=== PATIENT | male | born 1965 | race Caucasian/White ===

== ENCOUNTER 2022-08-02 07:41 | Day surgery (SDC) | payer MEDICAID ==
[2022-08-02] MEDS ORDERED: Lactated Ringers 1,000 ML IV SCH (08:00)
[2022-08-02] MEDS ORDERED: Propofol 200 MG/20 ML SDV ONE (08:02)
[2022-08-02] MEDS ORDERED: fentaNYL 100 MCG/2 ML SDV ONE (08:02)
[2022-08-02] MEDS ORDERED: Midazolam 1 MG/ML 2 ML SDV ONE (08:02)
== END 2022-08-02 10:42 | disposition home or self-care (01) ==
LOC: JP.SDS 07:41
PROVIDERS: ATTEND Student in an Organized Health Care Education/Training Program
DX: K63.5 Polyp of colon (principal); Z79.899 Other long term (current) drug therapy
CPT/HCPCS: 45380; J2250; J2704; J3010; J7120; 88305